=== PATIENT | female | born 1990 | race Caucasian/White ===

== ENCOUNTER 2017-02-01 07:39 | Inpatient (IN) | payer OTHER ==
[2017-02-01] MEDS ORDERED: Lactated Ringers 2,000 ML IV ONE (19:46)
[2017-02-01] MEDS ORDERED: PITOCIN 30 UNITS/ LR 500 ML 500 ML IV ONE (19:46)
[2017-02-01] MEDS ORDERED: XYLOCAINE 1% HCL 20 ML MDV IJ PRN (19:48)
[2017-02-01] MEDS ORDERED: Zofran 4 MG/2 ML VIAL IV PRN (19:48)
[2017-02-01] MEDS ORDERED: TYLENOL EXTRA STRENGTH 500 MG PO PRN (19:48)
[2017-02-01] MEDS ORDERED: PITOCIN 30 UNITS/ LR 500 ML 500 ML IV SCH (20:00)
[2017-02-01] MEDS ORDERED: Ephedrine Sulfate 50 MG/ML IV PRN (20:02)
[2017-02-01] MEDS ORDERED: OB EPIDURAL NAROPIN/SUFENTANIL IN NACL EPIDURAL PRN (20:02)
[2017-02-01] MEDS ORDERED: Lactated Ringers 1,000 ML IV ONE (20:02)
[2017-02-01 20:28] LABS: BASOPHIL % 0.1 % (0.0-0.4); Eosinophil % 0.3 % (0.00-5.0); Granulocytes % 78.8 % (36.0-66.0); Lymphocytes % 15.7 % (24.0-44.0); Mean Cell Volume 91.9 fl (78-100); Mean Corpuscular Hemoglobin 30.7 pg (26-32); Mean Platelet Volume 13.1 fl (6-9.5); Monocytes % 5.1 % (0.0-12.0); Platelet Count 227 K/mm3 (150-450); Red Blood Count 4.06 M/mm3 (4.1-5.4); Red Cell Distribution Width 12.9 % (11.5-14.0); White Blood Count 15.8 K/mm3 (4.0-10.5)
[2017-02-01] MEDS: Lactated Ringers 1,000 ML IV SCH (20:45)
[2017-02-02] MEDS: Lactated Ringers 1,000 ML IV SCH ×2 (05:13→15:57)
[2017-02-02] MEDS ORDERED: Dulcolax 10 MG SUPP PR PRN (08:51)
[2017-02-02] MEDS ORDERED: Ambien 10 MG PO PRN (08:51)
[2017-02-02] MEDS ORDERED: Anucort-HC SUPPOSITORY PR PRN (08:51)
[2017-02-02] MEDS ORDERED: CORTISONE 1% CREAM TP PRN (08:51)
[2017-02-02] MEDS ORDERED: TYLENOL EXTRA STRENGTH 500 MG PO PRN (08:51)
[2017-02-02] MEDS ORDERED: Dermoplast Spray TP PRN (08:51)
[2017-02-02] MEDS ORDERED: TUCKS TP PRN (08:51)
[2017-02-02] MEDS ORDERED: Mylicon 80MG PO PRN (08:51)
[2017-02-02] MEDS ORDERED: Restoril 15 MG PO PRN (08:51)
[2017-02-02] MEDS: Colace 100 MG PO SCH ×2 (11:30→23:10)
[2017-02-02] MEDS: FERREX 150 PO SCH (11:30)
[2017-02-03] MEDS ORDERED: Lactated Ringers 1,000 ML IV ONE (06:00)
[2017-02-03] MEDS ORDERED: Lactated Ringers 1,000 ML IV SCH (06:00)
[2017-02-03] MEDS ORDERED: Reglan 10 MG/2 ML IV SCH (06:00)
[2017-02-03] MEDS ORDERED: Pepcid 20 MG VIAL IV SCH (06:00)
[2017-02-03 06:31] LABS: BASOPHIL % 0.1 % (0.0-0.4); Eosinophil % 0.7 % (0.00-5.0); Granulocytes % 71.7 % (36.0-66.0); Lymphocytes % 20.4 % (24.0-44.0); Mean Cell Volume 93.8 fl (78-100); Mean Corpuscular Hemoglobin 31.1 pg (26-32); Monocytes % 7.1 % (0.0-12.0); Platelet Count 199 K/mm3 (150-450); Red Blood Count 3.89 M/mm3 (4.1-5.4); Red Cell Distribution Width 12.9 % (11.5-14.0); White Blood Count 13.6 K/mm3 (4.0-10.5)
[2017-02-03 06:45] LABS: INR 0.86 (0.8-3.0); PROTIME 9.7 SECONDS (9.95-12.35)
[2017-02-03 06:48] LABS: PTT 32.8 SECONDS (25.3-37.0)
[2017-02-03] MEDS ORDERED: Sensorcaine 0.25% 10 ML ONE (07:06)
[2017-02-03] MEDS ORDERED: Phenergan 25 MG INJ IM PRN (08:59)
[2017-02-03] MEDS ORDERED: DEMEROL 75 MG IM PRN (08:59)
[2017-02-03] MEDS ORDERED: Dextrose 5%-Lr IV Solution 1000 ML 1,000 ML IV SCH (09:00)
[2017-02-03] MEDS: Colace 100 MG PO SCH ×2 (09:23→23:01)
[2017-02-03] MEDS: FERREX 150 PO SCH (09:23)
[2017-02-03] MEDS: MOTRIN 400 MG PO PRN ×2 (09:24→15:38)
[2017-02-03 09:44] VITALS: O2SAT 98
--- NOTE | 2017-02-03 11:31 | OP ---
SURGERY DATE: 02/03/17 SURGERY TIME: 654 PREOPERATIVE DIAGNOSIS: 1. PATIENT DESIRES PERMANENT STERILIZATION. POSTOPERATIVE DIAGNOSIS: 1. PATIENT DESIRES PERMANENT STERILIZATION. PROCEDURE: 1. bilateral tubal ligation. ESTIMATED BLOOD LOSS: Minimal. SURGEON: Dr. Maximo Bustillos. ANESTHESIA: Spinal. DESCRIPTION OF PROCEDURE: The permanent nature of the procedure was reiterated to the patient and I also discussed the accepted failure rate of 1:300 with bilateral tubal ligation. I also discussed alternative means of contraception and again emphasized the permanent nature of this procedure. She desired to proceed and on review of the records, had signed consent in my office on 10/29/16. The patient was taken to the OR and underwent spinal anesthesia. Was prepped and draped in the usual sterile fashion. 0.25% Marcaine was used to infiltrate the area of the infraumbilical incision. Infraumbilical incision was made in the horizontal fashion and carried down the subcutaneous fat to the level of the fascia. The fascia was brought up and carefully incised and opening was extended in a horizontal fashion. The peritoneal cavity was entered and first the left fallopian tube was identified and followed down to the fimbrial edge. [place] was used to grasp the fallopian tube and a window was made in the mesosalpinx with electrocautery. A chromic tie was then passed through and both the proximal and distal tube segment ends were ligated with chromic tie. The interceding tube segment was then dissected free with Metzenbaum scissors and the free edges of the tubes were cauterized with electrocautery. The same was repeated on the right side with no complications. Both sides were noted to have hemostasis with tie material secured on both tube ends. The fascia was closed with 0 Vicryl in a running fashion with good closure and good hemostasis. Subcutaneous fat was irrigated with warm sterile saline and then, the skin layer was closed with 4-0 undyed Vicryl in a running subcuticular fashion. Steri-strips and occlusive dressing were placed over the incision and the patient was transferred to the recovery room in excellent condition.
[2017-02-03] MEDS ORDERED: Zofran 4 MG/2 ML VIAL IV ONE (14:26)
[2017-02-03] MEDS: NORCO 5/325 MG PO PRN ×2 (18:41→23:55)
[2017-02-04 05:51] LABS: Mean Cell Volume 93.6 fl (78-100); Mean Corpuscular Hemoglobin 31.1 pg (26-32); Mean Platelet Volume 12.8 fl (6-9.5); Platelet Count 212 K/mm3 (150-450); Red Blood Count 4.08 M/mm3 (4.1-5.4); Red Cell Distribution Width 12.9 % (11.5-14.0); White Blood Count 11.9 K/mm3 (4.0-10.5)
--- NOTE | 2017-02-04 08:21 | PCM.DS ---
Discharge Summary Date of Admission: 02/02/17 07:39 Admitting Physician: GEMA BAIRD Consults: Consults on Case 02/01/17 20:03 Notify Anesthesia Provider PRN 02/02/17 08:52 Notify Physician ROUTINE Primary Care Provider: GEMA BAIRD Allergies Allergies No Known Drug Allergies Allergy (Verified 02/01/17 20:58) Hospital Summary - Hospital Course Hospital Course: patient delivered via at 39 wks with no complications. had tubal ligation on 02/03 with no complications. her pain is well controlled, she is ambulating, eating and drinking normally and lochia is mild. - Vitals & Intake/Output Vital Signs: Vital Signs Temperature 98.5 F 02/04/17 05:10 Pulse Rate 78 02/04/17 05:10 Respiratory Rate 14 02/04/17 05:10 Blood Pressure 107/69 02/04/17 05:10 O2 Sat by Pulse Oximetry 98 02/04/17 05:10 Intake & Output: Intake & Output 02/01/17 02/02/17 02/03/17 02/04/17 11:59 11:59 11:59 11:59 Intake Total 4950 2435 940 Output Total 750 Balance 4200 2435 940 Weight 82.1 kg 82.1 kg - Lab Result Diagrams: 02/04/17 05:43 Lab Results-Last 24 Hrs: Lab Results-Last 24 Hours 02/04/17 Range/Units 05:43 WBC 11.9 H (4.0-10.5) K/mm3 RBC 4.08 L (4.1-5.4) M/mm3 Hgb 12.7 (12.0-16.0) gm/dl Hct 38.2 (35-47) % MCV 93.6 (78-100) fl MCH 31.1 (26-32) pg MCHC 33.2 (32-36) g/dl RDW 12.9 (11.5-14.0) % Plt Count 212 (150-450) K/mm3 MPV 12.8 H (6-9.5) fl Micro Results-Entire Visit: Microbiology 02/01/17 22:12 Urine Culture - Final Catherized NO GROWTH Discharge Exam General Appearance: no apparent distress, alert Respiratory Exam: normal breath sounds, lungs clear, No respiratory distress Cardiovascular Exam: regular rate/rhythm, normal heart sounds Gastrointestinal/Abdomen Exam: other (incision well approximated, clean, dry and intact) Extremity Exam: normal inspection, normal range of motion Final Diagnosis/Problem List - Final Discharge Diagnosis/Problem (1) Spontaneous vaginal delivery Current Visit: No Status: Acute (2) Status post tubal ligation at time of delivery, current hosp Current Visit: Yes Status: Acute - Discharge Disposition: Home, Self-Care Condition: Stable Prescriptions: New Hydrocodone/Acetaminophen [Jacobson 5-325 Tablet] 1 tab PO Q4-6HPRN PRN #20 tablet PRN Reason: Pain Discontinued Vits W-Ca,Fe,FA(<1Mg) [] 1 each PO DAILY Follow up with: GEMA BAIRD MD [Primary Care Provider] - 1 Week
[2017-02-04] MEDS: NORCO 5/325 MG PO PRN ×2 (08:56→15:49)
[2017-02-04] MEDS: FERREX 150 PO SCH (13:03)
[2017-02-04] MEDS: Colace 100 MG PO SCH (13:03)
[2017-02-04 16:08] VITALS: BP 111/69; PULSE 85
== END 2017-02-04 16:55 | disposition home or self-care (01) | DRG 767 ==
LOC: OB 07:39 → INTOOBSV 19:30 → OBSVTOIN 19:30
PROVIDERS: ADMIT Family Medicine; ATTEND Family Medicine
PROC: 10E0XZZ Delivery of Products of Conception, External Approach (ICD-10-PCS; principal; 2017-02-02)
PROC: 0UB70ZZ Excision of Bilateral Fallopian Tubes, Open Approach (ICD-10-PCS; 2017-02-02)
DX: O80 Encounter for full-term uncomplicated delivery (principal); Z3A.39 39 weeks gestation of pregnancy; Z37.0 Single live birth; Z30.2 Encounter for sterilization
CPT/HCPCS: 00851; 01967; 36415; 80307; 85025; 85027; 85610; 85730; 87086; 88302; G0378; J2405; J2590; J2795; L0625; A9270-GY